=== PATIENT | male | born 1980 | race Caucasian/White ===

== ENCOUNTER 2024-02-29 12:54 | Emergency (ER) | payer OTHER, SELFPAY ==
[2024-02-29 12:58] VITALS: BP 133/75
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
[2024-02-29] MEDS: ADACEL 0.5 ML IM (13:54)
[2024-02-29] MEDS: MOTRIN 600 MG PO (13:55)
== END 2024-02-29 15:32 | disposition home or self-care (01) ==
LOC: EMR 12:54
PROVIDERS: EMERGENCY PHYSICIAN Emergency Medicine
DX: S81.812A Laceration without foreign body, left lower leg, initial encounter (principal); W26.0XXA Contact with knife, initial encounter; Z23 Encounter for immunization
CPT/HCPCS: 99283; 12032; 90471; 73590; 90715

== ENCOUNTER → 2024-06-25 07:03 | Outpatient (REF) | payer OTHER, SELFPAY | LOC: MRI 3T 07:03 | PROVIDERS: ATTENDING PHYSICIAN Student in an Organized Health Care Education/Training Program | DX: S81.812D Laceration without foreign body, left lower leg, subsequent encounter (principal) | CPT/HCPCS: 73721 ==